=== PATIENT | female | born 1980 | race Caucasian/White ===

== ENCOUNTER 2017-01-03 21:18 | Emergency (ER) | payer OTHER ==
--- NOTE | 2017-01-03 21:30 | EDM.PDOC ---
ED HPI GENERAL MEDICAL PROBLEM - General Chief Complaint: Trauma Stated Complaint: Horse accident Time Seen by Provider: 01/03/17 21:20 Source of Information: Reports: Patient, EMS, RN Notes Reviewed History Limitations: Reports: No Limitations - History of Present Illness INITIAL COMMENTS - FREE TEXT/NARRATIVE: 36 year old female presents to the ED after she fell off her horse. Her horse spooked, causing her to fall off. There is questionable positive loss of consciousness. She admits to drinking alcohol today. She reports a headache and mid/low back pain. She arrived with c-collar in place. She denies neck pain, chest pain, abdominal pain, nausea, vomiting, diarrhea. She denies extremity pain. She reports a mild headache. She reports several concussions in the past. They are in [place] visiting for the weekend. - Related Data Allergies Allergy/AdvReac Type Severity Reaction Status Date / Time No Known Allergies Allergy Verified 01/03/17 21:27 Home Meds: Home Meds . [No Known Home Meds] 01/03/17 [History] Review of Systems - Review of Systems Review Of Systems: See Below Eyes: Reports: No Symptoms. Denies: Blurred Vision, Tunnel Vision, Vision Change Ears: Reports: No Symptoms Nose: Reports: No Symptoms Mouth/Throat: Reports: No Symptoms Respiratory: Reports: No Symptoms. Denies: Shortness of Breath Cardiovascular: Reports: No Symptoms. Denies: Chest Pain GI/Abdominal: Reports: No Symptoms. Denies: Abdominal Pain, Nausea, Vomiting Musculoskeletal: Reports: Back Pain, Muscle Pain. Denies: Neck Pain Skin: Reports: No Symptoms. Denies: Wound Neurological: Reports: Headache, Numbness, Tingling, Weakness. Denies: Confusion, Dizziness, Seizure, Syncope, Difficulty Walking ED EXAM, GENERAL - Physical Exam Exam: See Below Exam Limited By: No Limitations General Appearance: Alert, WD/WN, No Apparent Distress Eye Exam: Bilateral Eye: EOMI, Normal Inspection, PERRL Ears: Normal External Exam, Normal TMs Head: Atraumatic, Normocephalic Neck: Normal Inspection, Supple, Non-Tender, Full Range of Motion, Other (c- collar remained in place until cleared by CT). No: Tender Lateral, Tender Midline Respiratory/Chest: No Respiratory Distress, Lungs Clear, Normal Breath Sounds, Chest Non-Tender Cardiovascular: Normal Peripheral Pulses, Regular Rate, Rhythm, No Murmur GI/Abdominal: Normal Bowel Sounds, Soft, Non-Tender Back Exam: Normal Inspection, Full Range of Motion, Vertebral Tenderness (lower thoracic/upper lumbar spine tenderness. No step offs. No echymosis or bruising.) Extremities: Normal Inspection, Normal Range of Motion, Non-Tender. No: Arm Pain, Leg Pain Neurological: Alert, Oriented, Normal Cognition, No Motor/Sensory Deficits Skin Exam: Warm, Dry, Intact Course - Vital Signs Last Recorded V/S: Last Vital Signs Temp 97.8 F 01/03/17 21:22 Pulse 95 01/03/17 22:45 Resp 18 01/03/17 22:45 BP 107/73 01/03/17 22:45 Pulse Ox 98 01/03/17 22:45 - Orders/Labs/Meds Orders: Active Orders 24 hr Category Date Time Status Cervical Spine wo Cont [CT] Stat Exams 01/03/17 21:28 Taken Head wo Cont [CT] Stat Exams 01/03/17 21:28 Taken Lumbar Spine wo Cont [CT] Stat Exams 01/03/17 21:28 Taken Thoracic Spine wo Cont [CT] Stat Exams 01/03/17 21:28 Taken - Re-Assessments/Exams Free Text/Narrative Re-Assessment/Exam: CT scans obtained of the head, c-spine, t-spine, and l-spine. CTs read by [facility] , no acute findings. Please see full reports Collar was removed. Patient has no midline tenderness. She has full ROM with no pain. Repeat head to toe exam is unremarkable. No new injury identified. Patient will be discharged in care of her . She was instructed not to ride horse this weekend and she is not to have any alcohol for at least 3 days. Her and her were thoroughly educated on return precautions. Discharge instructions as documented. This trauma patient's care was discussed and supervised by Dr. Thapa. Departure - Departure Time of Disposition: 23:05 Disposition: Home, Self-Care 01 Condition: Good Clinical Impression: Minor head injury with loss of consciousness Qualifiers: Encounter type: initial encounter Qualified Code(s): S06.9X9A - Unspecified intracranial injury with loss of consciousness of unspecified duration, initial encounter - Discharge Information Instructions: Head Injury, Adult, [id number] Referrals: PCP,None [Primary Care Provider] - Forms: ED Department Discharge Additional Instructions: Minor Head Injury We have found no evidence to indicate that your head injury was serious. However , new symptoms and unexpected complications can develop hours or even days after the injury. The 24 hours are the most crucial and you should remain with a reliable quote clerk at least during this period If any of the following signs develop, call your doctor or come back to the ED: Drowsiness or increasing difficulty in awakening patient Nausea and vomiting Convulsions or fits Bleeding or watery drainage from the nose or ear Severe headaches Weakness or loss of feeling in the arms or legs Worsening or loss of balance Confusion or strange behavior One pupil (black part of eye) much larger than the other: peculiar movement of the eyes, double vision, or other visual disturbances A very slow or very rapid pulse, or unusual breathing pattern Brain rest for next 48-72 hours. This includes no video games, computers, loud music, loud TV. If there is swelling at the site of the injury, apply an ice pack, making sure that there is a cloth or towel between the ice pack and the skin. If swelling increases markedly in spite of the ice pack application, call us or come back to the ED. You may eat or drink as usual if you desire. However, you should not drink alcoholic beverages for at least 3 days after your injury. Do not take any sedatives or any pain relieves stronger than Tylenol ( acetaminophen) at least for the first 24 hours. Do not use aspirin containing medicines. Return to ER with any new or worsening symptoms NO driving today due to sedating medications. - My Orders Last 24 Hours: My Active Orders 01/03/17 21:28 Cervical Spine wo Cont [CT] Stat Head wo Cont [CT] Stat Lumbar Spine wo Cont [CT] Stat Thoracic Spine wo Cont [CT] Stat - Assessment/Plan Last 24 Hours: My Active Orders 01/03/17 21:28 Cervical Spine wo Cont [CT] Stat Head wo Cont [CT] Stat Lumbar Spine wo Cont [CT] Stat Thoracic Spine wo Cont [CT] Stat
[2017-01-04 00:47] VITALS: BP 107/73
--- NOTE | 2017-01-06 18:00 | CT ---
CT cervical spine Technique: Multiple axial sections were obtained from above C1 inferiorly to the bottom of T1. Reconstructed sagittal and coronal images were reviewed. Comparison: No prior cervical spine imaging. Findings: Vertebral body heights and disc spaces are maintained. Mastoid sinuses and middle ear cavities are clear. Posterior skull base is intact. Vertebral bodies and posterior arches are intact. No fracture is seen. No bony central or bony neural foraminal stenosis is seen. Minimal kyphosis is present on the reconstructed sagittal images. Impression: 1. Slight kyphosis either positional or due to muscle spasm. 2. Nothing acute is identified on CT study of the cervical spine. Diagnostic code #2 I agree with preliminary report issued by [facility] ([facility] preliminary report dictated on 01/03/17, 11:06 PM Central Time)
--- NOTE | 2017-01-06 18:00 | CT ---
Head CT Technique: Multiple axial sections through the brain were obtained. Intravenous contrast was not utilized. Comparison: No previous intracranial imaging. Findings: Ventricles along with basal cisterns and sulci over the convexities are within normal limits for the patient's age. No abnormal parenchymal densities are seen. No evidence of intracranial hemorrhage. No midline shift or mass effect is seen. Bone window settings were reviewed which show mild mucosal thickening within the ethmoid sinuses and minimal mucosal thickening within the sphenoid sinus. No acute calvarial abnormality is identified. Impression: 1. Mild sinus findings as noted above. 2. No acute intracranial abnormality is identified. Diagnostic code #2 I agree with preliminary report issued by [facility] ([facility] preliminary report dictated on 01/03/17, 11:23 PM Central Time)
--- NOTE | 2017-01-06 18:00 | CT ---
CT thoracic spine Technique: Multiple axial sections were obtained through the thoracic spine. Reconstructed sagittal and coronal images were reviewed. Comparison: No previous thoracic spine imaging. Findings: Vertebral body heights and disc spaces are maintained. Vertebral bodies and posterior arches are intact. No fracture is identified. No bony central or bony neural foraminal stenosis is seen. Posterior discs within the thoracic spine show no significant disc bulge or definite herniation. Impression: 1. Nothing acute is identified on CT study of the thoracic spine. Diagnostic code #1 Agree with preliminary report issued by [facility] ([facility] preliminary report dictated on 01/03/17, 11:21 PM Central Time)
--- NOTE | 2017-01-06 18:00 | CT ---
CT lumbar spine Technique: Multiple axial sections were obtained through the lumbar spine. Reconstructed sagittal and coronal images were reviewed. Comparison: No previous lumbar spine imaging. Findings: Mild disc space narrowing is seen posteriorly at L5-S1 with mild posterior disc bulge which is felt to be physiologic. Slight disc bulge or protrusion is seen at L4-L5 to the right of midline. Other discs are maintained. Vertebral body heights and disc spaces otherwise are preserved. No fracture or other bony abnormality is seen. No abnormal subluxation is seen. Impression: 1. Slight disc bulging or protrusion at L4-L5 to the right of midline. 2. Nothing acute is identified on CT study of the lumbar spine. Diagnostic code #2 I agree with preliminary report issued by [facility] ([facility] preliminary report dictated on 01/03/17, 11:04 PM Central Time)
== END 2017-01-03 23:13 | disposition home or self-care (01) ==
LOC: JD.ED 21:18
DX: S06.9X9A Unspecified intracranial injury with loss of consciousness of unspecified duration, initial encounter (principal); V80.010A Animal-rider injured by fall from or being thrown from horse in noncollision accident, initial encounter
CPT/HCPCS: 70450; 70450-26; 72125; 72125-26; 72128; 72128-26; 72131; 72131-26; 99284; 99284-25; 99285